=== PATIENT | male | born 1980 ===

== ENCOUNTER 2025-08-17 02:47 | Emergency (ER) | payer OTHER, BC | END 2025-08-17 03:56 | disposition home or self-care (01) | LOC: LL.ED 02:47 | DX: S62.660A Nondisplaced fracture of distal phalanx of right index finger, initial encounter for closed fracture (principal); S39.012A Strain of muscle, fascia and tendon of lower back, initial encounter; W23.1XXA Caught, crushed, jammed, or pinched between stationary objects, initial encounter | CPT/HCPCS: 73120-RT; 99283; A9270-GY ==